=== PATIENT | female | born 1930 | race Caucasian/White ===

== ENCOUNTER 2016-08-12 09:41 | Emergency (ER) | payer MEDICARE, OTHER ==
[2016-08-12 09:49] VITALS: BP 169/72; PULSE 60; RESP 18; TEMP 97.8
--- NOTE | 2016-08-12 10:46 | ED ---
Skin/Abscess/FB HPI - General Chief complaint: Skin/Abscess/Foreign Body Stated complaint: LESION ON LEFT ARM Time Seen by Provider: 08/12/16 09:50 Source: patient, RN notes reviewed Mode of arrival: ambulatory Limitations: no limitations - History of Present Illness Initial comments: 85-year-old female presents emergency department for a lesion on her left arm. She states that she noticed yesterday and he got worse overnight. She states it 's black and blue and states that she is worried about possible. Patient states that she does not remember doing anything to help there is a scab like structure over. Patient states he does not hurt does not itch at this time. Patient states she does take low-dose aspirin. She does have one similar on her right arm but states that she bumped her arm there. - Related Data Home Medications Medication Instructions Recorded Confirmed Levothyroxine Sodium [Synthroid] 75 mcg PO DAILY 11/14/14 08/12/16 Multivitamins, Thera [Multivitamin 1 tab PO DAILY 11/14/14 08/12/16 (formulary)] [place]-3 Fatty Acids/Fish Oil [Fish 1 cap PO BID 11/14/14 08/12/16 Oil 1,000 mg Softgel] Simvastatin [Zocor] 40 mg PO HS 11/14/14 08/12/16 Valsartan/Hydrochlorothiazide 1 tab PO DAILY 11/14/14 08/12/16 [Valsartan-Hctz 320-25 mg Tab] Aspirin EC [Ecotrin Low Dose] 81 mg PO DAILY 08/12/16 08/12/16 Allergies Allergy/AdvReac Type Severity Reaction Status Date / Time Iodinated Contrast Media - Allergy Anaphylaxis Verified 08/12/16 10:35 Oral and [Iodinated Contrast Media - IV Dye] Penicillins Allergy Rapid Verified 08/12/16 10:35 Heart Rate Review of Systems ROS Statement: Those systems with pertinent positive or pertinent negative responses have been documented in the HPI. ROS Other: All systems not noted in ROS Statement are negative. Past Medical History Past Medical History: Hyperlipidemia, Hypertension, Osteoarthritis (OA), Pneumonia, Thyroid Disorder Additional Past Medical History / Comment(s): cataracts History of Any Multi-Drug Resistant Organisms: None Reported Past Surgical History: Adenoidectomy, Appendectomy, Cholecystectomy, Hysterectomy, Joint Replacement, Tonsillectomy Additional Past Surgical History / Comment(s): rt carotid arteries, benign skin lesion removed from back, rt hip replacement, colonoscpy- clear, hemorrhoids Past Psychological History: No Psychological Hx Reported Smoking Status: Former smoker Past Alcohol Use History: None Reported Past Drug Use History: None Reported - Past Family History Father Family Medical History: No Reported History Additional Family Medical History / Comment(s): from old age Mother Family Medical History: Cancer Additional Family Medical History / Comment(s): from lung cancer(never smoked) General Exam Limitations: no limitations General appearance: alert, in no apparent distress Respiratory exam: Present: normal lung sounds bilaterally. Absent: respiratory distress, wheezes, rales, rhonchi, stridor Cardiovascular Exam: Present: regular rate, normal rhythm, normal heart sounds. Absent: systolic murmur, diastolic murmur, rubs, gallop, clicks Skin exam: Present: warm, dry, intact, normal color, other (Left arm there is a small area of ecchymosis with scabbing noted over it ecchymosis is flat ). Absent: rash Course Vital Signs 08/12/16 09:46 Temperature 97.8 F Pulse Rate 60 Respiratory 18 Rate Blood Pressure 169/72 O2 Sat by Pulse 96 Oximetry Medical Decision Making - Medical Decision Making 85-year-old female presented emergency department for left arm lesion. Patient appears to have area of ecchymosis there is one similar to her right arm. Patient is concern for cancer I did advise her if this does not improve in 2 weeks that she can have a biopsy by offal baler. Disposition Clinical Impression: Ecchymosis Disposition: HOME SELF-CARE Condition: Stable Instructions: Ecchymosis (ED) Additional Instructions: Please return to the Emergency Department if symptoms worsen or any other concerns. Referrals: Erica Christopher MD [Primary Care Provider] - 1-2 days Time of Disposition: 10:59
== END 2016-08-12 11:08 | disposition home or self-care (01) ==
LOC: EC 09:41
DX: R23.3 Spontaneous ecchymoses (principal); E78.5 Hyperlipidemia, unspecified; M19.90 Unspecified osteoarthritis, unspecified site; E07.9 Disorder of thyroid, unspecified; Z87.891 Personal history of nicotine dependence; Z88.0 Allergy status to penicillin; Z91.041 Radiographic dye allergy status; Z79.82 Long term (current) use of aspirin; Z79.899 Other long term (current) drug therapy
CPT/HCPCS: 99282

== ENCOUNTER 2017-04-19 10:10 | Emergency (ER) | payer MEDICARE, OTHER ==
[2017-04-19 10:33] VITALS: BP 188/84; PULSE 61; RESP 18; TEMP 97.7
[2017-04-19] MEDS ORDERED: IBUPROFEN 600 MG TAB PO STA (10:45)
--- NOTE | 2017-04-19 10:49 | ED ---
General Adult HPI - General Chief complaint: Extremity Problem,Nontraumatic Stated complaint: Left Ankle Swelling Time Seen by Provider: 04/19/17 10:16 Source: patient, RN notes reviewed Mode of arrival: EMS Limitations: physical limitation - History of Present Illness Initial comments: 86-year-old female presenting with chronic left ankle pain. Patient has had ankle pain for approximately 10 years. She's been diagnosed with tendinitis of the left ankle. She has had custom boots made for this pain. There is no history of injury, no new injury or overuse. No swelling or erythema. No fever or chills. Patient's pain is been worsening over the past several weeks. She has been seen by her primary care physician and pain management. She is not on any pain medication at this time. No recent steroids. Patient states the pain is so severe it is difficult for her to walk. She is not currently using crutches or a walker. Patient has no other complaints. - Related Data Home Medications Medication Instructions Recorded Confirmed Levothyroxine Sodium [Synthroid] 75 mcg PO DAILY 11/14/14 04/19/17 [place]-3 Fatty Acids/Fish Oil [Fish 1 cap PO DAILY 11/14/14 04/19/17 Oil 1,000 mg Softgel] Simvastatin [Zocor] 40 mg PO HS 11/14/14 04/19/17 Valsartan/Hydrochlorothiazide 1 tab PO DAILY 11/14/14 04/19/17 [Valsartan-Hctz 320-25 mg Tab] Previous Rx's Medication Instructions Recorded HYDROcodone/APAP 5-325MG [[place] 1 tab PO Q6HR PRN #12 tab 04/19/17 5-325] methylPREDNISolone Dose Pack 4 mg PO DIRECTED #21 package 04/19/17 [Medrol Dose Pack] Allergies Allergy/AdvReac Type Severity Reaction Status Date / Time Iodinated Contrast- Oral and Allergy Anaphylaxis Verified 04/19/17 10:41 IV Dye [Iodinated Contrast Media - IV Dye] Penicillins Allergy Rapid Verified 04/19/17 10:41 Heart Rate Review of Systems ROS Statement: Those systems with pertinent positive or pertinent negative responses have been documented in the HPI. ROS Other: All systems not noted in ROS Statement are negative. Past Medical History Past Medical History: Hyperlipidemia, Hypertension, Osteoarthritis (OA), Pneumonia, Thyroid Disorder Additional Past Medical History / Comment(s): cataracts History of Any Multi-Drug Resistant Organisms: None Reported Past Surgical History: Adenoidectomy, Appendectomy, Cholecystectomy, Hysterectomy, Joint Replacement, Tonsillectomy Additional Past Surgical History / Comment(s): rt carotid arteries, benign skin lesion removed from back, rt hip replacement, colonoscpy- clear, hemorrhoids Past Psychological History: No Psychological Hx Reported Smoking Status: Former smoker Past Alcohol Use History: None Reported Past Drug Use History: None Reported - Past Family History Father Family Medical History: No Reported History Additional Family Medical History / Comment(s): from old age Mother Family Medical History: Cancer Additional Family Medical History / Comment(s): from lung cancer(never smoked) General Exam Limitations: physical limitation General appearance: alert, in no apparent distress Head exam: Present: atraumatic, normocephalic Eye exam: Present: normal appearance, PERRL ENT exam: Present: normal exam Neck exam: Present: normal inspection. Absent: tenderness, meningismus Respiratory exam: Present: normal lung sounds bilaterally. Absent: respiratory distress, wheezes Cardiovascular Exam: Present: regular rate, normal rhythm GI/Abdominal exam: Present: soft. Absent: distended, tenderness, guarding Extremities exam: Present: other (Tenderness to palpation over the medial aspect of the ankle and over the Achilles, there is no associated skin changes, no erythema, no induration. No warmth. Range of motion limited at the ankle secondary to pain. Distal pulses intact) Neurological exam: Present: alert, oriented X3, CN II-XII intact. Absent: motor sensory deficit Psychiatric exam: Present: normal affect, normal mood Skin exam: Present: warm, dry, intact. Absent: cyanosis, diaphoretic Course Vital Signs 04/19/17 10:21 Temperature 97.7 F Pulse Rate 61 Respiratory 18 Rate Blood Pressure 188/84 O2 Sat by Pulse 94 L Oximetry Procedures - Orthopedic Splinting/Casting Injury #1 Side: left Lower Extremity Injury Location: ankle Lower Extremity Immobilizer: posterior splint Other Orthopedic Equipment: crutches Additional Comments: Patient neurovascularly intact both pre-and post-splinting. Medical Decision Making - Medical Decision Making 86-year-old female with chronic left ankle pain. Pain is been worsening over the past several weeks. She has been seen by her orthopedic surgeon. She was placed in a boot but has been unable to tolerate this secondary to pain. X- rays obtained, does show a calcaneal spurring and enthesophyte at the Achilles tendon insertion, with some soft tissue swelling. No signs of infection. Patient's pulses are intact. She is placed in a posterior splint for comfort. She will be given Medrol Dosepak, and will follow-up with orthopedic surgery. Disposition Clinical Impression: Tendinitis of ankle Disposition: HOME SELF-CARE Condition: Good Instructions: Achilles Tendinitis (ED) Prescriptions: HYDROcodone/APAP 5-325MG [[place] 5-325] 1 tab PO Q6HR PRN #12 tab PRN Reason: Pain methylPREDNISolone Dose Pack [Medrol Dose Pack] 4 mg PO DIRECTED #21 package Referrals: Erica Christopher MD [Primary Care Provider] - 1-2 days Time of Disposition: 11:42
--- NOTE | 2017-04-19 11:18 | XR ---
Left ankle HISTORY: Pain, unable to bear weight 3 views of the left ankle No comparisons Soft tissue swelling is noted. No fracture or dislocation evident. Bone mineralization mildly reduced . Alignment and joint space is maintained. Soft tissue calcification may be vascular in the medial as pect of the foot. There is a plantar calcaneal spur and enthesophyte at the insertion of the Achilles tendon. IMPRESSION: Soft tissue swelling and additional findings above
== END 2017-04-19 12:10 | disposition home or self-care (01) ==
LOC: EC 10:10
DX: M76.62 Achilles tendinitis, left leg (principal); E78.5 Hyperlipidemia, unspecified; I10 Essential (primary) hypertension; E07.9 Disorder of thyroid, unspecified; Z87.891 Personal history of nicotine dependence; Z79.899 Other long term (current) drug therapy; Z88.0 Allergy status to penicillin; Z91.041 Radiographic dye allergy status
CPT/HCPCS: 29515; 99283

== ENCOUNTER 2017-11-23 16:20 | Emergency (ER) | payer MEDICARE, OTHER ==
[2017-11-23 16:27] VITALS: RESP 18
--- NOTE | 2017-11-23 16:36 | ED ---
General Adult HPI - General Chief complaint: Fall Stated complaint: LEFT LEG PAIN FROM FALL Time Seen by Provider: 11/23/17 16:29 Source: patient, EMS, RN notes reviewed Mode of arrival: EMS - History of Present Illness Initial comments: Patient 86-year-old female presents emergency room today by EMS, with chief complaint of fall occurred approximate hour ago. She does admit that she was walking on the hardwood floor when she stepped on cover causing shooting slip and fall down. Patient does admit that she hit the back right side of her head on a chair. He states visual loss conscious. Patient denies any blood thinners. She has not pain to the left ankle and left hip area. She states that she did try to get up after the fall but had a difficult time bearing weight on this leg. Patient states that it felt like he was going to give out. Patient denies any other complaints or symptoms currently. Patient denies any recent fever, chills, shortness of breath, chest pain, back pain, abdominal pain , nausea or vomiting, headaches or visual changes, or any other complaints. - Related Data Home Medications Medication Instructions Recorded Confirmed Levothyroxine Sodium [Synthroid] 75 mcg PO DAILY 11/14/14 11/23/17 [place]-3 Fatty Acids/Fish Oil [Fish 1 cap PO DAILY 11/14/14 11/23/17 Oil 1,000 mg Softgel] Simvastatin [Zocor] 40 mg PO HS 11/14/14 11/23/17 Aspirin EC [Ecotrin Low Dose] 81 mg PO DAILY 11/23/17 11/23/17 Losartan/Hydrochlorothiazide 1 tab PO DAILY 11/23/17 11/23/17 [Losartan-Hctz 100-25 mg Tab] Magnesium 200 mg PO DAILY 11/23/17 11/23/17 Multivitamins, Thera [Multivitamin 1 tab PO DAILY 11/23/17 11/23/17 (formulary)] Allergies Allergy/AdvReac Type Severity Reaction Status Date / Time Iodinated Contrast- Oral and Allergy Anaphylaxis Verified 11/23/17 16:44 IV Dye [Iodinated Contrast Media - IV Dye] Penicillins Allergy Rapid Verified 11/23/17 16:44 Heart Rate Review of Systems ROS Statement: Those systems with pertinent positive or pertinent negative responses have been documented in the HPI. ROS Other: All systems not noted in ROS Statement are negative. Past Medical History Past Medical History: Hyperlipidemia, Hypertension, Osteoarthritis (OA), Pneumonia, Thyroid Disorder Additional Past Medical History / Comment(s): cataracts History of Any Multi-Drug Resistant Organisms: None Reported Past Surgical History: Adenoidectomy, Appendectomy, Cholecystectomy, Hysterectomy, Joint Replacement, Tonsillectomy Additional Past Surgical History / Comment(s): rt carotid arteries, benign skin lesion removed from back, rt hip replacement, colonoscpy- clear, hemorrhoids Past Psychological History: No Psychological Hx Reported Smoking Status: Former smoker Past Alcohol Use History: None Reported Past Drug Use History: None Reported - Past Family History Father Family Medical History: No Reported History Additional Family Medical History / Comment(s): from old age Mother Family Medical History: Cancer Additional Family Medical History / Comment(s): from lung cancer(never smoked) General Exam - General Exam Comments Initial Comments: General: The patient is awake and alert, in no distress, and does not appear acutely ill. Neck: The neck is supple. Cardiovascular: There is a regular rate and rhythm. No murmur, rub or gallop is appreciated. Respiratory: Lungs are clear to auscultation, respirations are non-labored, breath sounds are equal. No wheezes, stridor, rales, or rhonchi. Musculoskeletal: Patient does have normal appearance of the left hip, knee, ankle and foot with no obvious deformity. Patient shows good range of motion. Patient does have tenderness over the lateral malleolus. Mildly tender over the lateral aspect of left hip. Mild tenderness over the proximal fourth metatarsal. No other bony tenderness on exam. Pedal pulse 2+. Sensations intact. Neurological: A&O x 3. CN II-XII intact, There are no obvious motor or sensory deficits. Coordination appears grossly intact. Speech is normal. Skin: Skin is warm and dry and no rashes or lesions are noted. Psychiatric: Normal mood and affect. Course Vital Signs 11/23/17 16:23 Temperature 98.5 F Pulse Rate 89 Respiratory 18 Rate Blood Pressure 159/84 O2 Sat by Pulse 96 Oximetry Medical Decision Making - Medical Decision Making X-rays reviewed of the left hip, left foot, left ankle does show a distal fibular fracture. Results were discussed with patient. She has been placed in a posterior short leg OCL. Neurovascular rechecked and intact. Patient does have crutches at home. She also be given her that it is easier for her to use. She is advised to follow-up with orthopedics over the next 2 days return here to the emergency room for any other concerns. She is advised ice elevate the affected area. Disposition Clinical Impression: Ankle fracture Disposition: HOME SELF-CARE Condition: Good Instructions: Ankle Fracture (ED) Additional Instructions: Please use crutches or walker nonweightbearing. Please see splinted in place until follow-up with orthopedics over the next 2 days. Please continue to ice elevate the affected area and return here to the emergency room for any other concerns. Is patient prescribed a controlled substance at d/c from ED?: No Referrals: Erica Christopher MD [Primary Care Provider] - 1-2 days Artie Jonas DO [Doctor of Osteopathic Medicine] - 1-2 days Time of Disposition: 17:58
--- NOTE | 2017-11-23 17:18 | XR ---
EXAMINATION TYPE: XR ankle complete LT DATE OF EXAM: 11/23/2017 COMPARISON: NONE HISTORY: Pain after falling TECHNIQUE: 3 views FINDINGS: There are plantar and Achilles calcaneal spurs. There is nondisplaced oblique fracture dist al fibula. There is soft tissue swelling around the ankle joint. IMPRESSION: Acute nondisplaced fracture distal fibula.
--- NOTE | 2017-11-23 17:19 | XR ---
EXAMINATION TYPE: XR foot complete LT DATE OF EXAM: 11/23/2017 COMPARISON: NONE HISTORY: Pain after fall TECHNIQUE: 3 views FINDINGS: There are plantar and Achilles calcaneal spurs. Metatarsals are intact. I see no fracture n or dislocation. IMPRESSION: Calcaneal spurring. No fracture seen.
--- NOTE | 2017-11-23 17:21 | XR ---
EXAMINATION TYPE: XR Hip LT and AP Pelvis DATE OF EXAM: 11/23/2017 COMPARISON: NONE HISTORY: Pain after fall TECHNIQUE: A single AP view of the pelvis is obtained. Two views of the left hip are obtained. FINDINGS: The pelvic ring is intact. Proximal left femur and hip joint are intact. There is right hi p prosthesis. Sacroiliac joints appear intact. IMPRESSION: No acute abnormality of the pelvis and left hip.
[2017-11-23] MEDS ORDERED: IBUPROFEN 400 MG TAB PO STA (17:57)
[2017-11-23 18:22] VITALS: BP 176/84; PULSE 72; TEMP 97.5
== END 2017-11-23 18:21 | disposition home or self-care (01) ==
LOC: EC 16:20
DX: S82.832A Other fracture of upper and lower end of left fibula, initial encounter for closed fracture (principal); E78.5 Hyperlipidemia, unspecified; I10 Essential (primary) hypertension; Z79.82 Long term (current) use of aspirin; Z79.899 Other long term (current) drug therapy; Z88.0 Allergy status to penicillin; Z91.041 Radiographic dye allergy status; Z87.891 Personal history of nicotine dependence; Z96.641 Presence of right artificial hip joint; W01.198A Fall on same level from slipping, tripping and stumbling with subsequent striking against other object, initial encounter; Y93.01 Activity, walking, marching and hiking
CPT/HCPCS: 29515; 73502; 99283

== ENCOUNTER 2018-10-31 22:18 | Observation (INO) | payer MEDICARE, OTHER ==
--- NOTE | 2018-10-31 22:48 | ED ---
Chest Pain HPI - General Chief Complaint: Chest Pain Stated Complaint: Chest Pain Time Seen by Provider: 10/31/18 22:28 Source: patient Mode of arrival: wheelchair Limitations: no limitations - History of Present Illness Initial Comments: 's patient is an 87-year-old woman who presents to be evaluated for left chest pain that developed a little after 8 PM while she was in the process of playing bingo. Patient is not able to characterize the pain. She states that it was about 7 out of 10 intensity. She notes that it has improved somewhat since she decided to be seen here and states that it is now currently mild. She had not noted any worsening or relieving factors. There were no associated symptoms. She has not had pain like this in the past MD Complaint: chest pain Onset/Timin -: hour(s) Onset: other (While playing bingo) Pain Location: left chest Pain Radiation: none Severity: moderate Severity scale (1-10): 7 Quality: other (Unable to characterize) Consistency: other (She states it is now mild) Improves With: nothing Worsens With: nothing Treatments Prior to Arrival: aspirin - Related Data Home Medications Medication Instructions Recorded Confirmed Levothyroxine Sodium [Synthroid] 75 mcg PO DAILY 11/14/14 10/31/18 Simvastatin [Zocor] 40 mg PO HS 11/14/14 10/31/18 Fish Oil/Dha/Epa [Fish Oil 1,200 1 cap PO DAILY 10/31/18 10/31/18 mg Fish Oil] Hydrochlorothiazide [Hydrodiuril] 25 mg PO DAILY 10/31/18 10/31/18 Valsartan 80 mg PO DAILY 10/31/18 10/31/18 Allergies Allergy/AdvReac Type Severity Reaction Status Date / Time Iodinated Contrast- Oral and Allergy Anaphylaxis Verified 10/31/18 22:50 IV Dye [Iodinated Contrast Media - IV Dye] Penicillins Allergy Rapid Verified 10/31/18 22:50 Heart Rate Review of Systems ROS Statement: Those systems with pertinent positive or pertinent negative responses have been documented in the HPI. ROS Other: All systems not noted in ROS Statement are negative. Constitutional: Denies: fever, chills Respiratory: Denies: cough, dyspnea, hemoptysis Cardiovascular: Reports: as per HPI, chest pain. Denies: palpitations, orthopnea, edema, syncope Gastrointestinal: Denies: abdominal pain, nausea, vomiting Genitourinary: Denies: dysuria, hematuria Musculoskeletal: Denies: back pain Skin: Denies: rash Neurological: Denies: headache, weakness EKG Findings - EKG Results: EKG: interpreted by MITZY, sinus rhythm (Rate 64 bpm), normal axis, normal ST/T - Blocks, [place], Hypertrophy, ST Abn: Chamber hypertrophy or enlargement: only voltage criteria for left ventricular hypertrophy Past Medical History Past Medical History: Hyperlipidemia, Hypertension, Osteoarthritis (OA), Pneumonia, Thyroid Disorder Additional Past Medical History / Comment(s): cataracts History of Any Multi-Drug Resistant Organisms: None Reported Past Surgical History: Adenoidectomy, Appendectomy, Cholecystectomy, Hysterectomy, Joint Replacement, Tonsillectomy Additional Past Surgical History / Comment(s): rt carotid arteries, benign skin lesion removed from back, rt hip replacement, colonoscpy- clear, hemorrhoids Past Psychological History: No Psychological Hx Reported Smoking Status: Former smoker Past Alcohol Use History: None Reported Past Drug Use History: None Reported - Past Family History Father Family Medical History: No Reported History Additional Family Medical History / Comment(s): from old age Mother Family Medical History: Cancer Additional Family Medical History / Comment(s): from lung cancer(never smoked) General Exam Limitations: no limitations General appearance: alert, in no apparent distress Head exam: Present: atraumatic, normocephalic Eye exam: Present: normal appearance. Absent: scleral icterus, conjunctival injection ENT exam: Present: normal oropharynx Neck exam: Present: normal inspection Respiratory exam: Present: normal lung sounds bilaterally. Absent: respiratory distress, wheezes, rales, rhonchi, stridor, chest wall tenderness Cardiovascular Exam: Present: regular rate, normal rhythm, normal heart sounds. Absent: systolic murmur, diastolic murmur, rubs, gallop GI/Abdominal exam: Present: soft. Absent: distended, tenderness, guarding, rebound, rigid, mass Extremities exam: Present: normal inspection, normal capillary refill. Absent: pedal edema, calf tenderness Back exam: Present: normal inspection. Absent: CVA tenderness (R), CVA tenderness (L) Neurological exam: Present: alert Skin exam: Present: warm, dry, intact, normal color. Absent: rash Course Vital Signs 10/31/18 22:22 Temperature 98.1 F Pulse Rate 68 Respiratory 18 Rate Blood Pressure 144/79 O2 Sat by Pulse 99 Oximetry Disposition Clinical Impression: Chest pain Disposition: ADMITTED IP TO THIS HOSP Condition: Good Is patient prescribed a controlled substance at d/c from ED?: No Referrals: Erica Christopher MD [Primary Care Provider] - 1-2 days
[2018-10-31 23:00] LABS: Basophils # (A) 0.1 k/uL (0-0.2); Basophils % (A) 1 %; Eosinophils # (A) 0.3 k/uL (0-0.7); Eosinophils % (A) 4 %; HCT 42.9 % (34.0-46.0); HGB 14.9 gm/dL (11.4-16.0); Lymphocytes # (A) 2.4 k/uL (1.0-4.8); Lymphocytes % (A) 30 %; MCH 31.3 pg (25.0-35.0); MCHC 34.7 g/dL (31.0-37.0); MCV 90.2 fL (80.0-100.0); Monocytes # (A) 0.6 k/uL (0-1.0); Monocytes % (A) 7 %; Neutrophils # (A) 4.4 k/uL (1.3-7.7); Neutrophils % (A) 55 %; Platelet Count 244 k/uL (150-450); RBC 4.75 m/uL (3.80-5.40); RDW 13.4 % (11.5-15.5)
[2018-10-31 23:09] LABS: INR 0.9 (<1.2); Partial Thromboplastin Time 24.2 sec (22.0-30.0); Prothrombin Time 9.8 sec (9.0-12.0)
[2018-10-31 23:10] LABS: Albumin 4.5 g/dL (3.5-5.0); Calcium 10.4 mg/dL (8.4-10.2); Magnesium 1.9 mg/dL (1.6-2.3); Potassium 4.4 mmol/L (3.5-5.1); Total Bilirubin 0.3 mg/dL (0.2-1.3); Total Protein 7.5 g/dL (6.3-8.2)
--- NOTE | 2018-11-01 00:25 | XR ---
EXAM: XR Chest, 2 Views CLINICAL HISTORY: ITS.REASON XR Reason: Chest Pain TECHNIQUE: Frontal and lateral views of the chest. COMPARISON: Chest radiographs dated 11/15/2014. FINDINGS: Lungs: Hazy opacities in the lower lobes. Pleural space: Unremarkable. No pneumothorax. Heart: Cardiomegaly. Mediastinum: Unremarkable. Bones/joints: Degenerative changes seen in the thoracic spine. Vasculature: Atherosclerotic calcification of the thoracic aorta. IMPRESSION: Hazy opacities in the lower lobes. This could represent atelectasis with pneumonia or aspiration entirely excluded.
[2018-11-01] MEDS ORDERED: NITROGLYCERIN SL TABS 0.4 MG TAB SUBLINGUAL PRN (00:54)
[2018-11-01] MEDS ORDERED: LEVOTHYROXINE 75 MCG TAB PO SCH (06:30)
[2018-11-01] MEDS ORDERED: AMINOPHYLLINE 500 MG/20 ML VIAL IV PRN (08:16)
[2018-11-01] MEDS ORDERED: CAFFEINE CITRATE 60 MG/3 ML VIAL IV PRN (08:16)
[2018-11-01 08:26] LABS: Cholesterol 153 mg/dL (<200); HDL Cholesterol 45 mg/dL (40-60); LDL Cholesterol,Calculated 91 mg/dL (0-99); Triglycerides 83 mg/dL (<150)
[2018-11-01 08:31] VITALS: RESP 18
--- NOTE | 2018-11-01 08:52 | P.CRDCN ---
History of Present Illness History of present illness: This is a pleasant active 87-year-old female past medical history significant for hypertension, dyslipidemia, peripheral vascular disease s/p right endartectomy many years ago and former heavy smoker. She quit 2006. 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 We have been asked to see her in consultation for chest pain. She states yesterday while sitting down playing bingo she developed a tight pressure sensation in the left precordial region. The pain did not radiate to the arm, back, neck or jaw. This was not associated with shortness of breath, dizziness, nausea, vomiting, palpitations or diaphoresis. She con tinued playing bingo and the pain persisted with no specific aggravating or alleviating factor. After about 2 hours she came to the hospital for evaluation. At the time of her arrival she was having ongoing chest discomfort. The pain subsided approximately an hour after coming to the hospital on its own. She has had no further symptoms of chest discomfort since that time. She is seen and examined sitting up in bed in no acute distress. EKG reveals sinus mechanism with no acute ST or T wave abnormalities noted. Chest x-ray reveals hazy opacities in the bilateral lower lobes. Laboratory data reviewed, WBC 8, hemoglobin 14.9, platelets 244, sodium 141, potassium 4.4, creatinine 0.85, magnesium 1.9, cardiac enzymes negative 2, LDL 91. Current cardiac medications include valsartan 80 mg daily, simvastatin 40 mg daily and hydrochlorothiazide 25 mg daily. At the time of my exam: CONSTITUTIONAL: Denies fever. Denies chills. EYES: Denies blurred vision. Denies vision changes. Denies eye pain. EARS, NOSE, MOUTH & THROAT: Denies headache. Denies sore throat. Denies ear pain. CARDIOVASCULAR: Denies chest pain. Denies shortness of breath. Denies orthopnea. Denies PND. Denies palpitations. RESPIRATORY: Denies cough. GASTROINTESTINAL: Denies abdominal pain. Denies diarrhea. Denies constipation. Denies nausea. Denies vomiting. MUSCULOSKELETAL: Denies myalgias. INTEGUMENTARY: Denies pruitis. Denies rash. NEUROLOGIC: Denies numbness. Denies tingling. Denies weakness. PSYCHIATRIC: Denies anxiety. Denies depression. ENDOCRINE: Denies fatigue. Denies weight change. Denies polydipsia. Denies polyurina. GENITOURINARY: Denies burning, hematuria or urgency with micturation. HEMATOLOGIC: Denies history of anemia. Denies bleeding. Blood pressure 148/74 heart rate 53 afebrile maintaining oxygen saturation on room air GENERAL: This is a 87-year-old female in no apparent distress at the time of my examination. HEENT: Head is atraumatic, normocephalic. Pupils are equal, round. Sclerae anicteric. Conjunctivae are clear. Mucous membranes of the mouth are moist. Neck is supple. There is no jugular venous distention. No carotid bruit is heard. LUNGS: Clear to auscultation no wheezes, rales or rhonchi. No chest wall tenderness is noted on palpation or with deep breathing. Diminished bilaterally. HEART: Regular rate and rhythm without murmurs, rubs or gallops. S1 and S2 heard. ABDOMEN: Soft, nontender. Bowel sounds are heard. No organomegaly noted. EXTREMITIES: No evidence of peripheral edema and no calf tenderness noted. VASCULAR: Radial and dorsalis pedis pulses palpated, no evidence of clubbing. NEUROLOGIC: Patient is awake, alert and oriented x3. ASSESSMENT Chest pain, atypical. No EKG evidence of ischemia, negative enzymes. Hypertension Dyslipidemia Peripheral vascular disease s/p right endartectomy, exact details unavailable Former nicotine dependence PLAN An acute event has been ruled out. Underlying CAD is likely given the history of PVD along with risk factors of hypertension, dyslipidemia and former nicotine dependence. Proceed with Persantine stress test to rule out reversible ischemia. If stress test is normal she may be discharged home. Obtain 2D echocardiogram and doppler study to assess cardiac structure and function. Thank you kindly for this consultation. Nurse Practitioner note has been reviewed, I agree with a documented findings and plan of care. Patient was seen and examined. Past Medical History Past Medical History: Hyperlipidemia, Hypertension, Osteoarthritis (OA), Pneum onia, Thyroid Disorder Additional Past Medical History / Comment(s): cataracts History of Any Multi-Drug Resistant Organisms: None Reported Past Surgical History: Adenoidectomy, Appendectomy, Cholecystectomy, Hysterectomy, Joint Replacement, Tonsillectomy Additional Past Surgical History / Comment(s): rt carotid arteries, benign skin lesion removed from back, rt hip replacement, colonoscpy- clear, hemorrhoids Past Psychological History: No Psychological Hx Reported Smoking Status: Former smoker Past Alcohol Use History: None Reported Past Drug Use History: None Reported - Past Family History Father Family Medical History: No Reported History Additional Family Medical History / Comment(s): from old age Mother Family Medical History: Cancer Additional Family Medical History / Comment(s): from lung cancer(never smoked) Medications and Allergies Home Medications Medication Instructions Recorded Confirmed Type Levothyroxine Sodium [Synthroid] 75 mcg PO DAILY 11/14/14 10/31/18 History Simvastatin [Zocor] 40 mg PO HS 11/14/14 10/31/18 History Fish Oil/Dha/Epa [Fish Oil 1,200 1 cap PO DAILY 10/31/18 10/31/18 History mg Fish Oil] Hydrochlorothiazide [Hydrodiuril] 25 mg PO DAILY 10/31/18 10/31/18 History Valsartan 80 mg PO DAILY 10/31/18 10/31/18 History Allergies Allergy/AdvReac Type Severity Reaction Status Date / Time Iodinated Contrast- Oral and Allergy Anaphylaxis Verified 10/31/18 22:50 IV Dye [Iodinated Contrast Media - IV Dye] Penicillins Allergy Rapid Verified 10/31/18 22:50 Heart Rate Physical Exam Vitals: Vital Signs Temp Pulse Pulse Resp BP BP Pulse Ox 11/01/18 08:28 97.5 F L 53 L 18 148/74 96 11/01/18 08:00 48 L 11 L 142/72 94 L 11/01/18 07:30 48 L 12 148/68 91 L 11/01/18 06:37 51 L 18 144/77 99 11/01/18 04:40 50 L 18 144/62 94 L 11/01/18 02:00 56 L 18 135/63 94 L 11/01/18 01:30 61 18 137/70 94 L 11/01/18 01:00 62 20 138/90 93 L 11/01/18 00:30 61 19 156/61 98 11/01/18 00:00 62 18 130/62 92 L 10/31/18 23:00 71 17 142/68 93 L 10/31/18 22:22 98.1 F 68 18 144/79 99 Intake and Output 10/31/18 11/01/18 11/01/18 22:59 06:59 14:59 Other: Weight 77.111 kg Results 10/31/18 22:43 10/31/18 22:43 Cardiac Enzymes 10/31/18 10/31/18 11/01/18 Range/Units 22:43 22:43 05:34 AST 27 (14-36) U/L Troponin I <0.012 <0.012 (0.000-0.034) ng/mL Coagulation 10/31/18 Range/Units 22:43 PT 9.8 (9.0-12.0) sec APTT 24.2 (22.0-30.0) sec Lipids 11/01/18 Range/Units 05:34 Triglycerides 83 (<150) mg/dL Cholesterol 153 (<200) mg/dL HDL Cholesterol 45 (40-60) mg/dL CBC 10/31/18 Range/Units 22:43 WBC 8.0 (3.8-10.6) k/uL RBC 4.75 (3.80-5.40) m/uL Hgb 14.9 (11.4-16.0) gm/dL Hct 42.9 (34.0-46.0) % Plt Count 244 (150-450) k/uL Comprehensive Metabolic Panel 10/31/18 Range/Units 22:43 Sodium 141 (137-145) mmol/L Potassium 4.4 (3.5-5.1) mmol/L Chloride 103 (98-107) mmol/L Carbon Dioxide 27 (22-30) mmol/L BUN 31 H (7-17) mg/dL Creatinine 0.85 (0.52-1.04) mg/dL Glucose 93 (74-99) mg/dL Calcium 10.4 H (8.4-10.2) mg/dL AST 27 (14-36) U/L ALT 19 (9-52) U/L Alkaline Phosphatase 71 (38-126) U/L Total Protein 7.5 (6.3-8.2) g/dL Albumin 4.5 (3.5-5.0) g/dL Current Medications Generic Name Dose Route Start Last Admin Trade Name Freq PRN Reason Stop Dose Admin Aminophylline 100 mg 11/01/18 08:16 Aminophylline IV ONCE PRN Patient Response Aspirin 81 mg 11/02/18 09:00 Aspirin PO DAILY YVETTE Atorvastatin Calcium 20 mg 11/01/18 21:00 Lipitor PO HS YVETTE Caffeine Citrate 60 mg 11/01/18 08:16 Cafcit Inj IV 11/01/18 11:11 ONCE PRN Patient Response Hydrochlorothiazide 25 mg 11/01/18 09:00 Hydrodiuril PO DAILY YVETTE Dipyridamole 44 mg/ Sodium 50 mls @ 750 mls/hr 11/01/18 09:00 Chloride IV 11/01/18 09:03 ONCE ONE Levothyroxine Sodium 75 mcg 11/01/18 06:30 Synthroid PO DAILY@0630 YVETTE Nitroglycerin 0.4 mg 11/01/18 00:54 Nitrostat SUBLINGUAL Q5M PRN Chest Pain Valsartan 80 mg 11/01/18 09:00 Diovan PO DAILY YVETTE Intake and Output 10/31/18 11/01/18 11/01/18 22:59 06:59 14:59 Other: Weight 77.111 kg 10/31/18 22:43 10/31/18 22:43
[2018-11-01] MEDS ORDERED: HYDROCHLOROTHIAZIDE 25 MG TAB PO SCH (09:00)
[2018-11-01] MEDS ORDERED: DIPYRIDAMOLE 44 MG in SODIUM CHLORIDE 0.9% 41.2 ML IV ONE (09:00)
[2018-11-01] MEDS ORDERED: VALSARTAN 80 MG TAB PO SCH (09:00)
--- NOTE | 2018-11-01 12:09 | ECHOF ---
Referral Reason: MEASUREMENTS -------- HEIGHT: 160.0 cm WEIGHT: 77.1 kg BP: RVIDd: 2.7 cm (< 3.3) IVSd: 1.4 cm (0.6 - 1.1) LVIDd: 4.2 cm (3.9 - 5.3) LVPWd: 1.3 cm (0.6 - 1.1) IVSs: 1.5 cm LVIDs: 3.6 cm LVPWs: 1.3 cm LA Diam: 3.4 cm (2.7 - 3.8) LAESV Index (A-L): 26.62 ml/m Ao Diam: 2.8 cm (2.0 - 3.7) AV Cusp: 1.6 cm (1.5 - 2.6) LA Diam: 3.4 cm (2.7 - 3.8) MV EXCURSION: 17.354 mm (> 18.000) MV EF SLOPE: 40 mm/s (70 - 150) EPSS: 0.6 cm MV E Pipo: 0.78 m/s MV DecT: 208 ms MV A Pipo: 0.93 m/s MV E/A Ratio: 0.84 RAP: 5.00 mmHg RVSP: 21.00 mmHg FINDINGS -------- Sinus rhythm. This was a technically adequate study. LV size, wall thickness and systolic function are normal, with an EF greater than 55%. The left kaley tricular size is normal. The right ventricle is normal in size. The left atrial size is normal. Normal LA size by volume 22+/-6 ml/m2. The right atrial size is normal. The aortic valve is trileaflet, and appears structurally normal. No aortic stenosis or regurgitation. Mild mitral annular calcification present. Mild mitral regurgitation is present. Mild tricuspid regurgitation present. There is no evidence of pulmonary hypertension. The right v entricular systolic pressure, as measured by Doppler, is 21.00mmHg. There is no pulmonic regurgitation present. The aortic root size is normal. There is no pericardial effusion. CONCLUSIONS -------- 1. Sinus rhythm. 2. This was a technically adequate study. 3. LV size, wall thickness and systolic function are normal, with an EF greater than 55%. 4. The left ventricular size is normal. 5. The right ventricle is normal in size. 6. The left atrial size is normal. 7. Normal LA size by volume 22+/-6 ml/m2. 8. The right atrial size is normal. 9. The aortic valve is trileaflet, and appears structurally normal. No aortic stenosis or regurgitati on. 10. Mild mitral annular calcification present. 11. Mild mitral regurgitation is present. 12. Mild tricuspid regurgitation present. 13. There is no evidence of pulmonary hypertension. 14. The right ventricular systolic pressure, as measured by Doppler, is 21.00mmHg. 15. There is no pulmonic regurgitation present. 16. The aortic root size is normal. 17. There is no pericardial effusion. SENIOR FINANCIAL REPORTING ACCOUNTANT: Shanelle Peacock RDCS
--- NOTE | 2018-11-01 12:10 | NM ---
EXAMINATION TYPE: NM stress persantine cardiolit DATE OF EXAM: 11/01/2018 COMPARISON: NONE HISTORY: cp TECHNIQUE: After the intravenous administration of 10.4 mCi Tc 99m Sestamibi - Cardiolite resting SP ECT images acquired 45 minutes post injection. The patient received 44 mg Persantine, 24 mCi Tc 99m Sestamibi - Stress images obtained [address] injection FINDINGS: Review of stress and rest SPECT images demonstrates no distinct perfusion abnormality. Gated analysi s shows normal wall motion with an estimated left ventricular ejection fraction of 61 %. IMPRESSION: No scintigraphic evidence for reversible ischemia.
[2018-11-01 12:18] VITALS: BP 169/65; PULSE 65; TEMP 97.4
[2018-11-01] MEDS ORDERED: ATORVASTATIN 20 MG TAB PO SCH (21:00)
[2018-11-02] MEDS ORDERED: ASPIRIN 325 MG TAB PO SCH (09:00)
[2018-11-02] MEDS ORDERED: ASPIRIN 81 MG PO SCH (09:00)
--- NOTE | 2018-11-02 12:35 | EST ---
EXERCISE STRESS DATE OF SERVICE: 11/01/2018 AGE: 87 SEX: Female HT: 5'3" WT: 170 pounds PROTOCOL: Persantine Cardiolite STAGE: DURATION OF EXERCISE: HEART RATE REST: 54 BLOOD PRESSURE REST: 145/82 MAXIMUM HEART RATE ACHIEVED: 83 MAXIMUM BLOOD PRESSURE: 172/76 85% MPHR: 115 100% MPHR: 130 METS: INDICATIONS: Chest pain. CLINICAL INFORMATION: STRESS DATA: Heart rate 54, pressure is 145/82 mmHg. Baseline EKG showed sinus mechanism with PVCs and 44 mg of Persantine given over 15 seconds per protocol. Max heart rate was 83 beats per minute. Maximum pressure was 172/76 mmHg. Clinically the patient did not have any symptoms and the EKG did not show any significant ST or T-wave abnormalities. CONCLUSION: 1. Nondiagnostic electrocardiogram stress testing in response to Persantine. 2. Please follow up on the Cardiolite portion on separate report from radiology department. MMODL / IJN: [id number] /
--- NOTE | 2018-11-02 14:47 | P.HPIM ---
History of Present Illness H&P Date: 11/02/18 Chief Complaint: chest pain Iesha Ortega is an 87 yo F with PMH of HTN, HLD, vascular disease, former smoker. She presented to the ED after noticing L substernal chest tightness and pressure while playing bingo. She denies shortness of breath, radiation, diaphoresis, palpitations, nausea or vomiting. She states her pain did not improve throughout her bingo game and after 2 hours she decided to come into the ED. In the ED, vitals stable, EKG showed NSR, labs unremarkable and trop negative x2. Her chest pressure did resolve spontaneously shortly after she got to the ED. Review of Systems All systems: negative Constitutional: Denies chills, Denies fever Eyes: denies blurred vision, denies pain Ears, nose, mouth and throat: Denies headache, Denies sore throat Cardiovascular: Reports chest pain, Denies leg edema, Denies lightheadedness, Denies orthopnea, Denies palpitations, Denies shortness of breath Respiratory: Denies cough Gastrointestinal: Denies abdominal pain, Denies diarrhea, Denies nausea, Denies vomiting Genitourinary: Denies dysuria, Denies hematuria Musculoskeletal: Denies myalgias Integumentary: Denies pruritus, Denies rash Neurological: Denies numbness, Denies weakness Psychiatric: Denies anxiety, Denies depression Endocrine: Denies fatigue, Denies weight change Past Medical History Past Medical History: Hyperlipidemia, Hypertension, Osteoarthritis (OA), Pneumonia, Renal Disease, Thyroid Disorder, Vascular Disorder Additional Past Medical History / Comment(s): Recent L ankle fracture-healed but pt states she still gets swelling and pain when first up, arthritis in multiple joints, L pyelonephritis/sepsis/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 History of Any Multi-Drug Resistant Organisms: None Reported Past Surgical History: Adenoidectomy, Appendectomy, Cholecystectomy, Hysterectomy, Joint Replacement, Tonsillectomy Additional Past Surgical History / Comment(s): rt carotid endartectomy, benign skin lesion removed from back, rt hip replacement, colonoscpy- clear, hemorrhoidectomy, bilateral cataract removals/lens implants. Smoking Status: Former smoker - Past Family History Father Family Medical History: No Reported History Additional Family Medical History / Comment(s): from old age Mother Family Medical History: Cancer Additional Family Medical History / Comment(s): from lung cancer (never smoked) Medications and Allergies Home Medications Medication Instructions Recorded Confirmed Type Levothyroxine Sodium [Synthroid] 75 mcg PO DAILY 11/14/14 10/31/18 History Simvastatin [Zocor] 40 mg PO HS 11/14/14 10/31/18 History Fish Oil/Dha/Epa [Fish Oil 1,200 1 cap PO DAILY 10/31/18 10/31/18 History mg Fish Oil] Hydrochlorothiazide [Hydrodiuril] 25 mg PO DAILY 10/31/18 10/31/18 History Valsartan 80 mg PO DAILY 10/31/18 10/31/18 History Aspirin 81 mg PO DAILY chew 11/01/18 Rx Allergies Allergy/AdvReac Type Severity Reaction Status Date / Time Iodinated Contrast- Oral and Allergy Anaphylaxis Verified 10/31/18 22:50 IV Dye [Iodinated Contrast Media - IV Dye] Penicillins Allergy Rapid Verified 10/31/18 22:50 Heart Rate Physical Exam General: well nourished, well developed, NAD. Vitals reviewed Eyes: PERRL, EOMI, conjunctiva normal HENT: normocephalic, mucus membranes moist Neck: supple, no JVD Lungs: normal respiratory effort, no wheezes or rales CV: Regular rate and rhythm, no murmur. Peripheral pulses 2+ Abdomen: soft, nondistended, no organomegaly Lymph: no cervical or axillary LAD Skin: warm and dry. Neuro: A&Ox3, normal mood and affect Results CBC & Chem 7: 10/31/18 22:43 10/31/18 22:43 Thrombosis Risk Factor Assmnt - Choose All That Apply Any of the Below Risk Factors Present?: Yes Each Factor Represents 1 point: Obesity (BMI >25) Other Risk Factors: Yes Each Risk Factor Represents 3 Points: Age 75 years or older Other congenital or acquired thrombophilia - If yes, enter type in comment: No Thrombosis Risk Factor Assessment Total Risk Factor Score: 4 Thrombosis Risk Factor Assessment Level: Moderate Risk Assessment and Plan (1) Chest pain Status: Acute Code(s): R07.9 - CHEST PAIN, UNSPECIFIED SNOMED Code(s): 75911461 (2) Hypertension Status: Acute Code(s): I10 - ESSENTIAL (PRIMARY) HYPERTENSION SNOMED Code(s): 24203959 (3) Hyperlipidemia Status: Acute Code(s): E78.5 - HYPERLIPIDEMIA, UNSPECIFIED SNOMED Code(s): 17597642 Plan: 1. Chest pain/pressure. EKG unremarkable and trop negative. ACS ruled out. Cardiology consulted and anticipate stress test 2. HTN. Continue ARB 3. HLD. Continue statin
--- NOTE | 2018-11-02 14:49 | P.DS ---
Providers Date of admission: 11/01/18 00:57 Expected date of discharge: 11/01/18 Attending physician: Nathan Connor MD Consults: 11/01/18 00:55 Consult Physician Routine Consulting Provider: Jalil Olivas Consult Reason/Comments: Chest pain Do you want consulting provider notified?: Yes Primary care physician: Erica Christopher - Discharge Diagnosis(es) (1) Chest pain Status: Acute (2) Hypertension Status: Acute (3) Hyperlipidemia Status: Acute Hospital Course: Iesha Ortega is an 87 yo F with PMH of HTN, HLD, vascular disease, former smoker. She presented to the ED after noticing L substernal chest tightness and pressure while playing [place]. She denies shortness of breath, radiation, diaphoresis, palpitations, nausea or vomiting. She states her pain did not improve throughout her bingo game and after 2 hours she decided to come into the ED. In the ED, vitals stable, EKG showed NSR, labs unremarkable and trop negative x2. Her chest pressure did resolve spontaneously shortly after she got to the ED. Pt was admitted to medicine and seen by cardiology. She underwent echocardiogram which was unremarkable and persantine stress test which did not reveal any ischemia. She is discharged and will follow up with PCP in clinic. Patient Condition at Discharge: Good Plan - Discharge Summary Discharge Rx Participant: No New Discharge Prescriptions: New Aspirin 81 mg PO DAILY chew Continue Levothyroxine Sodium [Synthroid] 75 mcg PO DAILY Simvastatin [Zocor] 40 mg PO HS Valsartan 80 mg PO DAILY Hydrochlorothiazide [Hydrodiuril] 25 mg PO DAILY Fish Oil/Dha/Epa [Fish Oil 1,200 mg Fish Oil] 1 cap PO DAILY Discharge Medication List Levothyroxine Sodium [Synthroid] 75 mcg PO DAILY 11/14/14 [History] Simvastatin [Zocor] 40 mg PO HS 11/14/14 [History] Fish Oil/Dha/Epa [Fish Oil 1,200 mg Fish Oil] 1 cap PO DAILY 10/31/18 [History] Hydrochlorothiazide [Hydrodiuril] 25 mg PO DAILY 10/31/18 [History] Valsartan 80 mg PO DAILY 10/31/18 [History] Aspirin 81 mg PO DAILY chew 11/01/18 [Rx] Follow up Appointment(s)/Referral(s): Jalil Olivas MD [STAFF PHYSICIAN] - 11/13/18 4:15 pm (follow up with [facility] Erica Christopher MD [Primary Care Provider] - 1-2 days Patient Instructions/Handouts: Chest Pain (DC) Discharge Disposition: HOME SELF-CARE
== END 2018-11-01 17:45 | disposition home or self-care (01) ==
LOC: EC 22:18 → 1SOBS 11-01 00:57
PROVIDERS: ADMIT Family Medicine; ATTEND Family Medicine
DX: R07.89 Other chest pain (principal); I10 Essential (primary) hypertension; E78.5 Hyperlipidemia, unspecified; M19.90 Unspecified osteoarthritis, unspecified site; E07.9 Disorder of thyroid, unspecified; N28.1 Cyst of kidney, acquired; I73.9 Peripheral vascular disease, unspecified; Q63.8 Other specified congenital malformations of kidney; E66.9 Obesity, unspecified; Z68.30 Body mass index [BMI] 30.0-30.9, adult; Z79.890 Hormone replacement therapy; Z79.899 Other long term (current) drug therapy; Z88.0 Allergy status to penicillin; Z91.041 Radiographic dye allergy status; Z87.01 Personal history of pneumonia (recurrent); Z90.49 Acquired absence of other specified parts of digestive tract; Z90.710 Acquired absence of both cervix and uterus; Z96.641 Presence of right artificial hip joint; Z87.2 Personal history of diseases of the skin and subcutaneous tissue; Z87.891 Personal history of nicotine dependence; Z87.81 Personal history of (healed) traumatic fracture; Z87.440 Personal history of urinary (tract) infections; Z86.19 Personal history of other infectious and parasitic diseases; Z98.42 Cataract extraction status, left eye; Z98.41 Cataract extraction status, right eye; Z96.1 Presence of intraocular lens; Z80.1 Family history of malignant neoplasm of trachea, bronchus and lung
CPT/HCPCS: 99285; 36415; 93005; 93017; 93306; 80061; 80053; 83735; 84484 ×2; 85025; 85610; 85730; 71046; 78452; G0378; A9500; J1245

== ENCOUNTER → 2018-11-19 | Outpatient (CLI) | payer MEDICARE, OTHER ==
--- NOTE | 2018-11-20 04:59 | CT ---
EXAMINATION TYPE: CT hand LT wo con DATE OF EXAM: 11/19/2018 COMPARISON: None HISTORY: 87-year-old female Fall with Lateral and medial pain TECHNIQUE: Contiguous axial scanning of the left hand without IV contrast. Coronal and sagittal recon structions performed. 3-D reconstructions generated on a dedicated independent workstation. CT DLP: 166.9 mGycm Automated exposure control for dose reduction was used. FINDINGS: Relatively severe degenerative change at the first CMC and triscaphe joints. Some scattered synovial calcifications are present in the wrist. Some additional scattered osteoarthritic spurring at the DIP joints. There is a subtle nondisplaced oblique fracture at the base of the fifth metacarpal. Minimal early pe riosteal new bone formation is noted, refer to axial image 68 and sagittal image 34. No additional acute fracture is identified. Osteopenia. IMPRESSION: 1. SUBTLE NONDISPLACED, OBLIQUE FRACTURE AT THE BASE OF THE FIFTH METACARPAL. THIS APPEARS TO BE A BEATTY BACUTE FRACTURE WITH MINIMAL EARLY PERIOSTEAL CALLUS FORMATION. 2. ADVANCED DEGENERATIVE CHANGE AT THE BASE OF THE THUMB AND TRISCAPHE JOINT. ADDITIONAL SCATTERED OS TEOARTHRITIC CHANGES IN THE DISTAL FINGERS. 3. OSTEOPENIA.
== END | disposition home or self-care (01) ==
LOC: RADCTMAIN 13:03
PROVIDERS: ATTEND Family Medicine
DX: S62.347A Nondisplaced fracture of base of fifth metacarpal bone, left hand, initial encounter for closed fracture (principal); M19.042 Primary osteoarthritis, left hand; M85.88 Other specified disorders of bone density and structure, other site

== ENCOUNTER 2019-02-23 13:52 | Emergency (ER) | payer MEDICARE, OTHER ==
[2019-02-23 14:53] VITALS: BP 164/88; PULSE 76; RESP 18; TEMP 97.9
--- NOTE | 2019-02-23 15:47 | ED ---
Skin/Abscess/FB HPI - General Chief complaint: Skin/Abscess/Foreign Body Stated complaint: Abscess Time Seen by Provider: 02/23/19 15:08 Source: patient Mode of arrival: wheelchair Limitations: physical limitation - History of Present Illness Initial comments: 88yo presenting for insect bite x 2 days. Patient states that she has a bite amena on left anterior rodriguez. now there is surrounding redness, she noticed this for the past 24 hours redness spreading. Denies flu like symptoms, drainage fever, Patient concerned this is spider bite. Denies any other complaints. Patient appears well on arrival. - Related Data Home Medications Medication Instructions Recorded Confirmed Levothyroxine Sodium [Synthroid] 75 mcg PO DAILY 11/14/14 10/31/18 Simvastatin [Zocor] 40 mg PO HS 11/14/14 10/31/18 Fish Oil/Dha/Epa [Fish Oil 1,200 1 cap PO DAILY 10/31/18 10/31/18 mg Fish Oil] Hydrochlorothiazide [Hydrodiuril] 25 mg PO DAILY 10/31/18 10/31/18 Valsartan 80 mg PO DAILY 10/31/18 10/31/18 Previous Rx's Medication Instructions Recorded Aspirin 81 mg PO DAILY chew 11/01/18 Clindamycin [Cleocin] 450 mg PO Q8H 7 Days #63 capsule 02/23/19 Allergies Allergy/AdvReac Type Severity Reaction Status Date / Time Iodinated Contrast Media Allergy Anaphylaxis Verified 02/23/19 14:53 [Iodinated Contrast Media - IV Dye] Penicillins Allergy Rapid Verified 02/23/19 14:53 Heart Rate Review of Systems ROS Statement: Those systems with pertinent positive or pertinent negative responses have been documented in the HPI. ROS Other: All systems not noted in ROS Statement are negative. 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 History of Any Multi-Drug Resistant Organisms: None Reported Past Surgical History: Adenoidectomy, Appendectomy, Cholecystectomy, Hysterectomy, Joint Replacement, Tonsillectomy Additional Past Surgical History / Comment(s): rt carotid endartectomy, benign skin lesion removed from back, rt hip replacement, colonoscpy- clear, hemorrhoidectomy, bilateral cataract removals/lens implants. Past Psychological History: No Psychological Hx Reported Smoking Status: Former smoker Past Alcohol Use History: None Reported Past Drug Use History: None Reported - Past Family History Father Family Medical History: No Reported History Additional Family Medical History / Comment(s): from old age Mother Family Medical History: Cancer Additional Family Medical History / Comment(s): from lung cancer (never smoked) General Exam - General Exam Comments Initial Comments: General: The patient is awake and alert, in no distress, and does not appear acutely ill. Eye: Pupils are equal, round and reactive to light, extra-ocular movements are intact. No nystagmus. There is normal conjunctiva bilaterally. No signs of icterus. Cardiovascular: There is a regular rate and rhythm. No murmur, rub or gallop is appreciated. Respiratory: Lungs are clear to auscultation, respirations are non-labored, breath sounds are equal. No wheezes, stridor, rales, or rhonchi. Musculoskeletal: Normal ROM, no tenderness. Strength 5/5. Sensation intact. Pulses equal bilaterally 2+. Neurological: A&O x 3. CN II-XII intact grossly, There are no obvious motor or sensory deficits. Coordination appears grossly intact. Speech is normal. Skin: Skin is warm and dry and no rashes. small 1cm break in skin, no central fluctuance no drainage. Surrounding faint erythema stretching approximately 3 cm surrounding the area of break in the skin. Mild warmth to palpation. No other findings Psychiatric: Cooperative, appropriate mood & affect, normal judgment. Limitations: physical limitation Course Vital Signs 02/23/19 14:51 Temperature 97.9 F Pulse Rate 76 Respiratory 18 Rate Blood Pressure 164/88 O2 Sat by Pulse 96 Oximetry Medical Decision Making - Medical Decision Making 86 cc insect bite. no DM. exam consistent with cellulitis from break in skin that appears most consistent with possible insect bite. No MRSA hx. Patient has no systemic symptoms, afebrile and well appearing. no ascbess. Will treat with oral antibiotics and strict return parameters. Patient agreeable to this care plan and discharge. patient case discussed with Dr. Frederick. Disposition Clinical Impression: Cellulitis Disposition: HOME SELF-CARE Condition: Good Instructions (If sedation given, give patient instructions): Cellulitis (ED) Additional Instructions: Please use medication as discussed. Please follow-up with family doctor in the next 2 days. Please return to emergency room if the symptoms increase or worsen or for any other concerns. Prescriptions: Clindamycin [Cleocin] 450 mg PO Q8H 7 Days #63 capsule Is patient prescribed a controlled substance at d/c from ED?: No Referrals: Erica Christopher MD [Primary Care Provider] - 1-2 days Time of Disposition: 15:46
== END 2019-02-23 15:50 | disposition home or self-care (01) ==
LOC: EC 13:52
DX: L03.116 Cellulitis of left lower limb (principal); E78.5 Hyperlipidemia, unspecified; I10 Essential (primary) hypertension; M19.90 Unspecified osteoarthritis, unspecified site; E07.9 Disorder of thyroid, unspecified; Z87.891 Personal history of nicotine dependence; Z88.0 Allergy status to penicillin; Z91.041 Radiographic dye allergy status; Z79.890 Hormone replacement therapy; Z79.899 Other long term (current) drug therapy; Z96.641 Presence of right artificial hip joint
CPT/HCPCS: 99282